=== PATIENT | female | born 1980 | race Caucasian/White ===

== ENCOUNTER 2017-04-03 09:50 | Emergency (ER) | payer OTHER ==
[2017-04-03 10:26] LABS: microscopic required? NO
[2017-04-03 10:39] LABS: UA SPECIFIC GRAVITY 1.025 (1.005-1.035); urine erythrocyte NEGATIVE (NEGATIVE)
[2017-04-03 11:01] VITALS: BP 169/105
== END 2017-04-03 11:01 | disposition home or self-care (01) ==
LOC: ED 09:50
PROVIDERS: Emergency Medicine
DX: R09.1 Pleurisy (principal); I10 Essential (primary) hypertension; Z88.1 Allergy status to other antibiotic agents
CPT/HCPCS: J1885

== ENCOUNTER 2018-06-09 12:00 | Emergency (ER) | payer OTHER ==
[~2018-06-09] VITALS: Ht 172.7 cm; Wt 88.9 kg
[2018-06-09 12:08] VITALS: Ht 172.7 cm; Wt 88.9 kg
[2018-06-09 12:40] VITALS: BP 121/84
== END 2018-06-09 12:40 | disposition home or self-care (01) ==
LOC: ED 12:00
DX: R19.7 Diarrhea, unspecified (principal); R10.84 Generalized abdominal pain; R11.0 Nausea; I10 Essential (primary) hypertension; Z98.890 Other specified postprocedural states; Z90.49 Acquired absence of other specified parts of digestive tract; Z88.1 Allergy status to other antibiotic agents